=== PATIENT | male | born 1975 | race African-American/Black ===

== ENCOUNTER 2024-02-03 06:45 | Outpatient (CLI) | payer BC ==
[2024-02-03] MEDS ORDERED: LIDOcaine 1% (10mg/ml)w/preservative inj. 20ml MDV ONE (07:13)
[2024-02-03] MEDS ORDERED: iohexol 300 MG/1 ML 50ml polymer ONE (07:13)
[2024-02-03] MEDS ORDERED: GADOTERATE MEGLUMINE 7.5 MMOL/15 ML VIAL IV ONE (07:13)
[2024-02-03] MEDS ORDERED: LIDOcaine 1% 30ml preserv. free vial ONE (07:15)
== END 2024-02-03 23:59 | disposition home or self-care (01) ==
LOC: RAD 06:45
PROVIDERS: ATTEND Family Medicine Sports Medicine
DX: S43.432A Superior glenoid labrum lesion of left shoulder, initial encounter (principal); S46.212A Strain of muscle, fascia and tendon of other parts of biceps, left arm, initial encounter; M19.012 Primary osteoarthritis, left shoulder; X58.XXXA Exposure to other specified factors, initial encounter; Y93.89 Activity, other specified; Y92.89 Other specified places as the place of occurrence of the external cause; Y99.8 Other external cause status
CPT/HCPCS: 23350; 73040; 73222; A9575; J3490; Q9967; 77002; 77003